=== PATIENT | female | born 1985 | race Caucasian/White ===

== ENCOUNTER → 2024-02-10 | Outpatient (CLI) | payer BC, SELFPAY ==
[2024-02-10 09:53] LABS: Collection Type, Urine Clean Catch
[2024-02-10 10:28] LABS: Basophils # (Auto) 0.1 Thou/mm3 (0.0-0.2); Basophils % (Auto) 1 % (0-2.5); Eosinophils # (Auto) 0.1 Thou/mm3 (0.0-0.5); Eosinophils % (Auto) 1 % (0-10); Hematocrit 40.7 % (36.0-46.0); Hemoglobin 13.5 g/dL (12.0-16.0); Immature Granulocytes % (Auto) 0 % (0-0); Immature Granulocytes Auto 0.02 Thou/mm3 (0.00-0.00); Lymphocytes # (Auto) 1.9 Thou/mm3 (1.0-4.8); Lymphocytes % (Auto) 42 % (10-50); Mean Corpuscular HGB Conc 33.2 g/dl (31.0-37.0); Mean Corpuscular Hemoglobin 28.8 pg (25.0-35.0); Mean Corpuscular Volume 87 fL (80-100); Monocytes # (Auto) 0.4 Thou/mm3 (0.0-0.8); Monocytes % (Auto) 10 % (0-12); Neutrophils # (Auto) 2.1 Thou/mm3 (1.8-7.7); Neutrophils % (Auto) 45 % (37-80); Nucleated Red Blood Cell % 0 /100 WBC (0); Platelet Count 438 Thou/mm3 (140-440); RDW Standard Deviation 39.9 fL (36.4-46.3); Red Blood Count 4.69 Miln/mm3 (4.00-5.20); White Blood Count 4.5 Thou/mm3 (3.6-11.0)
[2024-02-10 10:45] LABS: Vitamin B12 873 pg/mL (211-911); Vitamin D 25 Hydroxy Total 27.9 ng/mL (7.3-40.2)
[2024-02-10 10:45] LABS: Bilirubin,Urine Negative (Negative); Blood,Urine Negative (Negative); Clarity,Urine Clear (Clear/Hazy); Color,Urine Yellow (Lt Yel-Yel); Culture Indicated,Urine Not Indicated; Glucose, Urine Negative (Negative); Ketones,Urine Negative (Negative); Nitrite,Urine Negative (Negative); Protein,Urine Trace (Neg - Trace); RBC,Urine 2 /hpf (0-3); Specific Gravity,Urine 1.027 (1.001-1.035); Squamous Epithelial Cell,Urine 4 /hpf (0-5); Urobilinogen,Urine Negative mg/dL (0.0-1.0); WBC,Urine 1 /hpf (0-5)
[2024-02-10 10:56] LABS: Alanine Aminotransferase 19 U/L (10-49); Albumin, Serum 4.5 gm/dL (3.5-5.0); Albumin/Globulin Ratio 1.7 (1.2-2.2); Alkaline Phosphatase 47 U/L (46-116); Anion Gap 8 (7-16); Aspartate Amino Transferase 16 U/L (0-34); BUN/Creatinine Ratio 14 Ratio (12-20); Bilirubin,Total 0.6 mg/dL (0.3-1.2); Blood Urea Nitrogen 11 mg/dL (9-23); Calcium 9.9 mg/dL (8.3-10.6); Calcium (Corrected) 9.9 mg/dL (8.5-10.1); Carbon Dioxide 25.8 mMol/L (20.0-31.0); Cardiac Risk Estimate 3.1 RATIO (3.7-5.6); Chloride 103 mMol/L (98-107); Cholesterol 201 mg/dL (132-200); Creatinine (Component) 0.8 mg/dL (0.6-1.3); Globulin 2.7 gm/dL (2.3-3.5); Glucose 90 mg/dL (74-106); HDL Cholesterol 64 mg/dL (40-60); LDL Cholesterol,Calculated 116 mg/dL (0-130); Osmolality,Calculated 273 (275-295); Potassium 4.4 mMol/L (3.4-5.1); Sodium 137 mMol/L (136-145); Thyroid Stimulating Hormone 1.57 uIU/mL (0.55-4.78); Total Protein 7.2 gm/dL (5.7-8.2); Triglycerides 105 mg/dL (30-150); eGFR > 60 See Note
[2024-02-10 11:05] LABS: Leukocyte Esterase,Urine Negative (Negative)
[2024-02-10 11:27] LABS: Iron 108 mcg/dL (50-170)
[2024-02-10 11:48] LABS: Glucose Estimated Average 111 mg/dL (80-131); Hemoglobin A1C 5.5 % Hgb (4.8-6.0)
[2024-02-13 06:27] LABS: T3,Total* 106 ng/dL (76-181); Thyroid Peroxidase Antibodies* 42 IU/mL (<9)
== END | disposition home or self-care (01) ==
PROVIDERS: PCP Family Medicine; Referring Provider Nurse Practitioner Family; Visit Provider Nurse Practitioner Family
DX: E04.1 Nontoxic single thyroid nodule (principal); Z98.84 Bariatric surgery status
CPT/HCPCS: 36415; 80053; 80061; 81001; 82306; 82607; 83036; 83540; 84439; 84443; 84480; 85025; 86376

== ENCOUNTER → 2024-02-24 | Outpatient (CLI) | payer BC, SELFPAY ==
[2024-02-24 10:47] LABS: Quantiferon-TB* See Sep Rpt
[2024-02-24 11:30] LABS: Basophils % (Auto) 1 % (0-2.5); Eosinophils # (Auto) 0.1 Thou/mm3 (0.0-0.5); Eosinophils % (Auto) 2 % (0-10); Hematocrit 39.4 % (36.0-46.0); Immature Granulocytes % (Auto) 0 % (0-0); Immature Granulocytes Auto 0.01 Thou/mm3 (0.00-0.00); Lymphocytes # (Auto) 1.9 Thou/mm3 (1.0-4.8); Lymphocytes % (Auto) 35 % (10-50); Mean Corpuscular Hemoglobin 28.9 pg (25.0-35.0); Mean Corpuscular Volume 88 fL (80-100); Monocytes # (Auto) 0.5 Thou/mm3 (0.0-0.8); Monocytes % (Auto) 10 % (0-12); Neutrophils # (Auto) 2.7 Thou/mm3 (1.8-7.7); Neutrophils % (Auto) 52 % (37-80); Nucleated Red Blood Cell % 0 /100 WBC (0); Platelet Count 457 Thou/mm3 (140-440); RDW Standard Deviation 41.3 fL (36.4-46.3); White Blood Count 5.2 Thou/mm3 (3.6-11.0)
[2024-02-24 11:47] LABS: Alanine Aminotransferase 28 U/L (10-49); Albumin, Serum 4.4 gm/dL (3.5-5.0); Albumin/Globulin Ratio 1.8 (1.2-2.2); Alkaline Phosphatase 48 U/L (46-116); Anion Gap 7 (7-16); Aspartate Amino Transferase 26 U/L (0-34); BUN/Creatinine Ratio 19 Ratio (12-20); Bilirubin,Total 0.4 mg/dL (0.3-1.2); Blood Urea Nitrogen 15 mg/dL (9-23); Calcium 10.3 mg/dL (8.3-10.6); Calcium (Corrected) 10.3 mg/dL (8.5-10.1); Carbon Dioxide 26.6 mMol/L (20.0-31.0); Chloride 105 mMol/L (98-107); Creatinine (Component) 0.8 mg/dL (0.6-1.3); Globulin 2.5 gm/dL (2.3-3.5); Glucose 90 mg/dL (74-106); Osmolality,Calculated 278 (275-295); Potassium 4.3 mMol/L (3.4-5.1); Sodium 139 mMol/L (136-145); Total Protein 6.9 gm/dL (5.7-8.2); eGFR > 60 See Note
[2024-02-24 12:25] LABS: Hepatitis B Surface Ab NonReact(Not Immune) (Immune); Hepatitis C Antibody Non Reactive (Non React)
[2024-02-27 22:07] LABS: Hepatitis B Virus DNA* NOT DETECTED
[2024-02-28 06:39] LABS: Hepatitis B Core Ab,Total* NONREACTIVE; Hepatitis B DNA PCR NOT DETECTED Log IU/mL
== END | disposition home or self-care (01) ==
LOC: COPL 10:29
PROVIDERS: PCP Nurse Practitioner Family; Referring Provider General Practice; Visit Provider General Practice
DX: L30.9 Dermatitis, unspecified (principal)
CPT/HCPCS: 36415; 80053; 85025; 86480; 86704; 86706; 86803; 87517

== ENCOUNTER → 2024-02-28 | Outpatient (CLI) | payer BC, SELFPAY ==
--- NOTE | 2024-02-28 10:30 | XR_ITS ---
Examination: Breast ultrasound complete, bilateral Date and time of exam: February 28, 2024 1047 hours INDICATIONS: History dense breast tissue on mammography Technique: Real-time grayscale ultrasonographic imaging bilateral breasts, including all 4 quadrants as well as nipple retroareolar and axillary regions. Findings: Sonographic images right and left breast demonstrated no cystic or solid masses IMPRESSION: BI-RADS Category 1: Negative studies
--- NOTE | 2024-02-28 11:30 | XR_ITS ---
Examination: Screening digital mammography, bilateral Computer aided detection 3-D breast Tomosynthesis, bilateral Date and time of exam: February 28, 2024 1056 hours Compared to July 02, 2022 Indication: Screening, family history, mother, breast cancer Technique: Nonmagnified MLO, CC views of the breasts to been obtained, reconstructed from 3-D Tomosynthesis images. R2 computer aided detection program utilized for evaluation of suspicious masses and/or abnormal calcifications. 3-D Tomosynthesis images obtained. Findings: Scattered areas of fibroglandular density. Benign calcifications. No interval suspicious masses Impression: BI-RADS category II: Benign Findings. Recommend 1 year follow-up mammogram.
== END | disposition home or self-care (01) ==
LOC: CDIM 10:18
PROVIDERS: PCP Family Medicine; Referring Provider Specialist; Visit Provider Specialist
DX: Z12.31 Encounter for screening mammogram for malignant neoplasm of breast (principal); R92.323 Mammographic fibroglandular density, bilateral breasts; R92.1 Mammographic calcification found on diagnostic imaging of breast
CPT/HCPCS: 76641; 77063; 77067